=== PATIENT | male | born 1975 ===

== ENCOUNTER 2019-08-03 01:20 | Emergency (ER) | payer SELFPAY ==
--- NOTE | 2019-08-03 02:02 | ER ---
Nurse's Notes [facility] Name: Glenn Stevens Age: 43 yrs Sex: Male : 1975 Arrival Date: 08/03/2019 Time: :22 Bed 5 Private MD: Diagnosis: Gingival enlargement;Cellulitis and abscess of mouth Presentation: 08/02 01:30 Chief complaint: Patient states: MORNING STARTED TO HURT AND NOTICED RED KNOT ON THE rv LOWER GUM. PAIN SCALE OF 5/10. DENIES TAKING ANY PAIN MEDICATION. Coronavirus screen: Proceed with normal triage. Ebola Screen: No symptoms or risks identified at this time. Initial Sepsis Screen: Does the patient meet any 2 criteria? No. Patient's initial sepsis screen is negative. Does the patient have a suspected source of infection? No. Patient's initial sepsis screen is negative. Risk Assessment: Do you want to hurt yourself or someone else? Patient reports no desire to harm self or others. 01:30 Method Of Arrival: Ambulatory rv 01:30 Acuity: ROWAN 5 rv Triage Assessment: 01:32 General: Appears in no apparent distress. Behavior is calm, cooperative. Pain: rv Complains of pain in mouth Pain currently is 5 out of 10 on a pain scale. EENT: Reports pain in lower right central incisor and lower right lateral incisor Pain is 5 out of 10 on a pain scale. Neuro: Level of Consciousness is awake, alert, obeys commands, Oriented to person, place, time, situation. Cardiovascular: Patient's skin is warm and dry. Respiratory: Airway is patent. Derm: Skin is intact. Historical: - Allergies: :32 No Known Allergies; rv - PMHx: 01:32 Hypertension; Diabetes - NIDDM; rv - PSHx: 01:32 None; rv - Immunization history:: Adult Immunizations up to date, Last tetanus immunization: unknown, Flu vaccine is not up to date. - Social history:: Smoking status: Patient denies any tobacco usage or history of. - Family history:: not pertinent. Screenin:36 Abuse screen: Denies threats or abuse. Nutritional screening: No deficits noted. ea Tuberculosis screening: No symptoms or risk factors identified. Fall Risk None identified. Assessment: 01:36 General: Appears in no apparent distress. Behavior is appropriate for age. Pain: ea Complains of pain in lower right central incisor, lower right lateral incisor and lower right cuspid. Neuro: Level of Consciousness is awake, alert, obeys commands, Oriented to person, place, time, situation. Respiratory: Airway is patent Respiratory effort is even, unlabored, Respiratory pattern is regular, symmetrical. Derm: Skin is pink, warm \T\ dry. 02:18 Reassessment: Patient and/or family updated on plan of care and expected duration. Pain ea level reassessed. Patient is alert, oriented x 3, equal unlabored respirations, skin warm/dry/pink. Discharge instruction given to patient verbalized the understanding of instruction. Pt left ED ambulatory. Vital Signs: 01:30 BP 154 / 100; Pulse 98; Resp 19; Temp 98; Pulse Ox 99% on R/A; Weight 78.93 kg; Height rv 5 ft. 8 in. (172.72 cm); Pain 5/10; 02:17 BP 142 / 96; Pulse 92; Resp 18; Pulse Ox 98% ; ea 01:30 Body Mass Index 26.46 (78.93 kg, 172.72 cm) rv ED Course: 01:22 Patient arrived in ED. ag3 01:22 Matty Horn MD is Attending Physician. kourtney 01:25 Vick Grady, JENISE is Primary Nurse. rv 01:32 Triage completed. rv 01:32 Arm band placed on left wrist. Patient placed in the treatment room, on a stretcher, rv Patient notified of wait time. 01:36 Patient has correct armband on for positive identification. Bed in low position. Call ea light in reach. 02:01 Km Barber DDS is Referral Physician. kourtney 02:17 No provider procedures requiring assistance completed. Patient did not have IV access ea during this emergency room visit. Administered Medications: 02:16 Drug: [place] 10 mg-325 mg 1 tabs {Note: RASS 0.} Route: PO; ea 02:16 Follow up: Response: Medication administered at discharge.; RASS: Alert and Calm (0) ea Outcome: 02:02 Discharge ordered by . kourtney 02:17 Discharged to home ambulatory. ea 02:17 Condition: stable 02:17 Discharge instructions given to patient, Instructed on discharge instructions, follow up and referral plans. 02:18 Patient left the ED. ea Signatures: Matty Horn MD MD cha Antunez, Elena, RN RN Vick Hewitt, RN RN Nila Fernandez agKosta
--- NOTE | 2019-08-03 02:03 | EDPHYS ---
Physician Documentation [facility] Name: Glenn Stevens Age: 43 yrs Sex: Male : 1975 Arrival Date: 08/03/2019 Time: 01:22 Bed 5 Private MD: PORTER Physician Matty Horn HPI: 08/02 01:40 This 43 yrs old Male presents to ER via Ambulatory with complaints of kourtney Toothache. 01:40 This 43 yrs old Male presents to ER via Ambulatory with complaints of kourtney Toothache. 01:40 The patient presents with pain, redness, swelling. The problem is located in the lower kourtney right lateral incisor. Onset: The symptoms/episode began/occurred yesterday. Duration: The symptoms are continuous, but are steadily getting better. Modifying factors: The symptoms are alleviated by nothing, the symptoms are aggravated by chewing, talking. Associated signs and symptoms: The patient has no apparent associated signs or symptoms. Severity of symptoms: At their worst the symptoms were mild, in the emergency department the symptoms are unchanged. The patient has not experienced similar symptoms in the past. Historical: - Allergies: 01:32 No Known Allergies; rv - PMHx: 01:32 Hypertension; Diabetes - NIDDM; rv - PSHx: 01:32 None; rv - Immunization history:: Adult Immunizations up to date, Last tetanus immunization: unknown, Flu vaccine is not up to date. - Social history:: Smoking status: Patient denies any tobacco usage or history of. - Family history:: not pertinent. ROS: 01:40 Constitutional: Negative for fever, chills, and weight loss, Eyes: Negative for injury, kourtney pain, redness, and discharge, Neck: Negative for injury, pain, and swelling, Cardiovascular: Negative for chest pain, palpitations, and edema, Respiratory: Negative for shortness of breath, cough, wheezing, and pleuritic chest pain, Abdomen/GI: Negative for abdominal pain, nausea, vomiting, diarrhea, and constipation, Back: Negative for injury and pain, : Negative for injury, bleeding, discharge, and swelling, MS/Extremity: Negative for injury and deformity, Skin: Negative for injury, rash, and discoloration, Neuro: Negative for headache, weakness, numbness, tingling, and seizure, Psych: Negative for depression, anxiety, suicide ideation, homicidal ideation, and hallucinations, Allergy/Immunology: Negative for hives, rash, and allergies, Endocrine: Negative for neck swelling, polydipsia, polyuria, polyphagia, and marked weight changes, Hematologic/Lymphatic: Negative for swollen nodes, abnormal bleeding, and unusual bruising. 01:40 ENT: Positive for Gum pain Exam: 01:40 Constitutional: This is a well developed, well nourished patient who is awake, alert, kourtney and in no acute distress. Head/Face: Normocephalic, atraumatic. Eyes: Pupils equal round and reactive to light, extra-ocular motions intact. Lids and lashes normal. Conjunctiva and sclera are non-icteric and not injected. Cornea within normal limits. Periorbital areas with no swelling, redness, or edema. Neck: Trachea midline, no thyromegaly or masses palpated, and no cervical lymphadenopathy. Supple, full range of motion without nuchal rigidity, or vertebral point tenderness. No Meningismus. Chest/axilla: Normal chest wall appearance and motion. Nontender with no deformity. No lesions are appreciated. Cardiovascular: Regular rate and rhythm with a normal S1 and S2. No gallops, murmurs, or rubs. Normal PMI, no JVD. No pulse deficits. Respiratory: Lungs have equal breath sounds bilaterally, clear to auscultation and percussion. No rales, rhonchi or wheezes noted. No increased work of breathing, no retractions or nasal flaring. Abdomen/GI: Soft, non-tender, with normal bowel sounds. No distension or tympany. No guarding or rebound. No evidence of tenderness throughout. Back: No spinal tenderness. No costovertebral tenderness. Full range of motion. Male : Normal genitalia with no discharge or lesions. Skin: Warm, dry with normal turgor. Normal color with no rashes, no lesions, and no evidence of cellulitis. MS/ Extremity: Pulses equal, no cyanosis. Neurovascular intact. Full, normal range of motion. Neuro: Awake and alert, GCS 15, oriented to person, place, time, and situation. Cranial nerves II-XII grossly intact. Motor strength 5/5 in all extremities. Sensory grossly intact. Cerebellar exam normal. Normal gait. Psych: Awake, alert, with orientation to person, place and time. Behavior, mood, and affect are within normal limits. 01:40 ENT: Mouth: Lips: normal, moist, Oral mucosa: normal, pink and intact, moist, Gums: noted to have cellulitis, reddened, swollen, on the lower right central incisor and lower right lateral incisor. Vital Signs: 01:30 BP 154 / 100; Pulse 98; Resp 19; Temp 98; Pulse Ox 99% on R/A; Weight 78.93 kg; Height rv 5 ft. 8 in. (172.72 cm); Pain 5/10; 02:17 BP 142 / 96; Pulse 92; Resp 18; Pulse Ox 98% ; ea 01:30 Body Mass Index 26.46 (78.93 kg, 172.72 cm) rv Procedures: 02:00 I \T\ D: Incision and drainage was performed for an abscess of the right lower right kourtney lateral incisor Prepped with none. Anesthetized with nothing. Incised with 18 gauge bevel. Drained small amount purulent fluid. bloody fluid. the patient tolerated the procedure well. MDM: 01:26 Patient medically screened. [facility] 01:48 Data reviewed: vital signs, nurses notes. [facility] Administered Medications: 02:16 Drug: [place] 10 mg-325 mg 1 tabs {Note: RASS 0.} Route: PO; ea 02:16 Follow up: Response: Medication administered at discharge.; RASS: Alert and Calm (0) ea Disposition: 08/03/19 02:02 Discharged to Home. Impression: Gingival enlargement, Cellulitis and abscess of mouth. - Condition is Stable. - Discharge Instructions: Dental Abscess, Dental Caries, Adult, Dental Pain, Gingivitis, Dental Pain, [id number], Gingivitis, [id number], Dental Abscess, [id number]. - Prescriptions for Clindamycin HCl 300 mg Oral Capsule - take 1 capsule by ORAL route every 6 hours for 7 days; 28 capsule. Tylenol- Codeine #3 300-30 mg Oral Tablet - take 2 tablets by ORAL route every 6 hours As needed; 26 tablet. - Medication Reconciliation Form, Thank You Letter, Antibiotic Education, Prescription Opioid Use form. - Follow up: Private Physician; When: 2 - 3 days; Reason: Recheck today's complaints, Re-evaluation by your physician. Follow up: Km Barber; When: 2 - 3 days; Reason: Recheck today's complaints, Re-evaluation by your physician. - Problem is new. - Symptoms have improved. Signatures: Matty Horn MD MD cha Antunez, Elena, RN RN Vick Hewitt, RN RN sherrie Corrections: (The following items were deleted from the chart) 02:18 02:02 08/03/2019 02:02 Discharged to Home. Impression: Gingival enlargement; Cellulitis ea and abscess of mouth. Condition is Stable. Discharge Instructions: Dental Caries, Adult, Dental Pain, Gingivitis, Dental Pain, [id number], Gingivitis, [id number], Dental Caries, [id number]. Prescriptions for Clindamycin HCl 300 mg Oral Capsule - take 1 capsule by ORAL route every 6 hours for 7 days; 28 capsule, Tylenol-Codeine #3 300-30 mg Oral Tablet - take 2 tablets by ORAL route every 6 hours As needed; 26 tablet. and Forms are Medication Reconciliation Form, Thank You Letter, Antibiotic Education, Prescription Opioid Use. Follow up: Private Physician; When: 2 - 3 days; Reason: Recheck today's complaints, Re-evaluation by your physician. Follow up: Km Barber; When: 2 - 3 days; Reason: Recheck today's complaints, Re-evaluation by your physician. Problem is new. Symptoms have improved. kourtney
[2019-08-03] MEDS ORDERED: HYDROCODONE/APAP 10/325 TAB ONE (02:17)
[2019-08-03 02:24] VITALS: TEMP 98
[2019-08-03 02:25] VITALS: BP 142/96; O2SAT 98
== END 2019-08-03 02:18 | disposition home or self-care (01) ==
LOC: ER 01:20
PROC: 0C9XXZ0 Drainage of Lower Tooth, External Approach, Single (ICD-10-PCS; principal; 2019-08-03)
DX: K04.7 Periapical abscess without sinus (principal); K12.2 Cellulitis and abscess of mouth; K06.1 Gingival enlargement
CPT/HCPCS: 99283